=== PATIENT | female | born 1945 | race Caucasian/White ===

== ENCOUNTER 2016-09-18 13:24 | Emergency (ER) | payer MEDICARE, BC ==
[~2016-09-18 13:24] MED LIST: ASPIRIN81 M2 PO; BACTRIM DS TABL1 TA1 PO; CELEBREX100 MG PO; CELEXA; CIPRO PO; CRESTOR PO; DICLOFENAC PO; EVISTA60 M1 DOB; FOSAMAX PO; HYDRALAZINE HC100 MG PO; LASIX PO; LISINOPRIL20 MG PO; LORTAB 5/500 TA1 TA1 PO; NAPROXEN PO; NASACORT AQ16.5 GM; ROBAXIN PO; SYNTHROID PO; VICODIN 5/1 TAB 5/50 PO; VIT D PO; VITAMIN D 4001 UDTAB PO; VOLTAREN75 MG PO; VYTORIN; ZETIA PO; ZOLOFT PO
== END 2016-09-18 13:30 | disposition home or self-care (01) ==
LOC: SED 13:24
DX: R04.0 Epistaxis (principal); I10 Essential (primary) hypertension
CPT/HCPCS: 99283